=== PATIENT | male | born 1990 | race Caucasian/White ===

== ENCOUNTER 2022-03-07 17:39 | Inpatient (IN) | payer SELFPAY ==
[2022-03-07] VITALS (8 sets, daily range): BP systolic 95–143; BP diastolic 39–76; PULSE 80–97; RESP 16–18; TEMP 36.9; O2SAT 98–100; BMI 32.5
--- NOTE | 2022-03-07 18:21 | XRR_ITS ---
PROCEDURE INFORMATION: Exam: XR Chest Exam date and time: 03/07/2022 6:28 PM Age: 31 years old Clinical indication: Other: Lower extremity edema TECHNIQUE: Imaging protocol: Radiologic exam of the chest. Views: 1 view. COMPARISON: No relevant prior studies available. FINDINGS: Lungs: Unremarkable. No consolidation. Pleural spaces: Unremarkable. No pleural effusion. No pneumothorax. Heart/Mediastinum: Unremarkable. No cardiomegaly. Bones/joints: Unremarkable. XR/XR chest 1V portable [id number] IMPRESSION: No acute findings.
--- NOTE | 2022-03-07 18:22 | ECG_ITS ---
[facility] Test Date: 2022-03-07 Pat Name: David Fallon Department: Room: Gender: Male Bevel [employer]: : 1990 Requested By: Obi Dunaway Order Number: [id number] MD: Nadia Goodman M.D. Measurements Intervals [place] Rate: 93 P: 12 [place]: 161 QRS: 38 QRSD: 103 T: 1 QT: 396 QTc: 495 Interpretive Statements SINUS RHYTHM NONSPECIFIC T-WAVE ABNORMALITY No previous ECG available for comparison Electronically Signed On 03-08-2022 7:57:16 CDT by Nadia Goodman M.D. [id number]
--- NOTE | 2022-03-07 18:48 | USR_ITS ---
PROCEDURE INFORMATION: Exam: US Duplex Right Lower Extremity Veins, Limited Exam date and time: 03/07/2022 10:24 PM Age: 31 years old Clinical indication: Pain; Edema, localized; Lower extremity, right and lower extremity, bilateral; Leg, lower; Patient HX: Patient has chronic liver failure, chronic ble edema but no HX dvt; Additional info: Le swelling and pain TECHNIQUE: Imaging protocol: Real-time Duplex ultrasound of the Right Lower Extremity with 2-D sahu scale, color Doppler flow and spectral waveform analysis with image documentation. Limited exam was focused on the right lower extremity veins. COMPARISON: No relevant prior studies available. FINDINGS: Right deep veins: Unremarkable. The common femoral, femoral, proximal profunda femoral and popliteal veins are patent without thrombus. Normal Doppler waveforms. Normal compressibility and/or augmentation response. Right superficial veins: Unremarkable. Saphenofemoral junction is patent without thrombus. Soft tissues: Unremarkable. US/[place] [id number] IMPRESSION: No evidence of deep vein thrombosis.
[2022-03-07] MEDS: haloperidol inj 5 mg/mL INJ 1 mL 3 MG IVP (19:15)
[2022-03-07] MEDS: morphine 4 mg/mL SDV 1 mL IVP (19:15)
[2022-03-07] MEDS: FUROsemide 10 mg/mL SDV 10mL 80 MG IVP (19:15)
[2022-03-07] MEDS: ondansetron 2 mg/ML SDV 2 mL 4 MG IVP (19:18)
--- NOTE | 2022-03-07 20:17 | W.ED.EXTPRO ---
HPI - Extremity Problem General: Chief complaint: Extremity Injury, Lower Stated complaint: leg pain Time Seen by Provider: 03/07/22 18:15 Source: patient and family History of Present Illness: 31-year-old male with a history of autoimmune hepatitis he tells me. He has been on a float trip with some family. He has noticed increased bilateral right greater than left lower extremity swelling over the past 24 to 48 hours. He has significant pain to the right lower extremity. He is on a transplant list, and under hepatology care at the [facility]. He believes he has had some mild mental status changes as well. He has a high meld score at baseline. No definite fever. His leg feels warm. MD Complaint: extremity pain and extremity swelling Onset (ago): hour(s) Pain Consistency: constant Location: right and lower extremity Quality: stabbing and aching Associated symptoms: Deny chest pain or fever(s) Review of Systems Const: Denies: fever(s) Eyes: Denies: change in vision Card: Denies: chest pain Resp: Reports: dyspnea; Denies: productive cough or non-productive cough GI: Reports: nausea; Denies: abdominal pain or vomiting Psych: Reports: anxiety PFSH ED PFSH: Medical History (Updated 03/08/22 @ 01:50 by Lester Figueroa MD) Autoimmune hepatitis Surgical History (Updated 03/08/22 @ 01:51 by Lester Figueroa MD) History of liver biopsy Family History (Updated 03/08/22 @ 01:51 by Lester Figueroa MD) Grandfather Cancer Social History (Updated 03/08/22 @ 01:51 by Lester Figueroa MD) Smoking and tobacco status: never smoked Alcohol intake: never Substance/Drug Use: never Physical Exam Const: GENERAL APPEARANCE: cooperative, well kempt, in distress and ill appearing HENMT: COMMON NORMALS: normocephalic, atraumatic and Normal external nose present HEAD & SCALP: normocephalic and atraumatic FACE & SINUS: normal facial exam and face symmetric NOSE: Normal external nose present Eye: COMMON NORMALS: Equal, round and reactive pupils present and EOMs intact bilaterally SCLERA: scleral abnormal Laterality of scleral abnormality: positive bilateral scleral icterus PUPIL: Yes Equal, round and reactive pupils present Neck/C-Spine: GENERAL: Yes trachea midline Chest: CHEST: Yes Symmetrical chest wall rise Resp: COMMON NORMALS: clear to auscultation bilaterally EFFORT & INSPECTION: Yes tachypneic AUSCULTATION: clear to auscultation bilaterally Cardio: COMMON NORMALS: regular rate and regular rhythm RATE: regular rate RHYTHM: regular rhythm GI: COMMON NORMALS: Soft to palpation PALPATION: Yes Soft to palpation Extremity: NARRATIVE EXTREMITY EXAM: There is significant lower extremity tenderness on the right. There are petechia and a small amount of ecchymosis present, mainly to the dorsum of the foot. GENERAL: Yes edema (4+) Neuro: SHAKILA COMA SCALE: document GCS findings [place] coma scale eye opening: Spontaneous Shakila coma scale verbal response: Orientated Shakila coma scale motor response: Obey commands [place] coma scale total score: 15 Psych: COMMON NORMALS: cooperative APPEARANCE: Yes well kempt ATTITUDE: Yes Other attitude/behavior findings present (Psych) (Very anxious) ACTIVITY/MOTOR BEHAVIOR: Yes appropriate eye contact SPEECH: Yes Pressured speech present Skin: GENERAL SKIN EXAM: jaundice Course Vital Signs: Vital signs: Vital Signs Temperature 98.4 F 03/07/22 17:54 Pulse Rate 87 03/08/22 00:00 Respiratory Rate 14 03/08/22 00:00 Blood Pressure 112/56 03/08/22 00:00 Pulse Oximetry 98 03/08/22 00:00 Oxygen Delivery Me thod 03/07/22 18:34 MDM - Extremity (Nontraumatic) Medical Decision Making 31-year-old male with a history of end-stage liver disease. He presents with significant painful swelling to bilateral lower extremities, right much greater than left. DVT ultrasound is negative. White blood cell count is 13.3. Hemoglobin is 11. Sodium is 118. Potassium is 5 EKG is not remarkable. Chest x-ray is not remarkable. He has been given 80 mg of Lasix without much diuresis currently. Blood pressures have been marginal, currently 109/62. Saturations are good on room air. This patient gets his care at [facility]. I have spoken with them, regarding possible admission bed. They are at capacity currently. Their team recommends fluid restriction, and diuretics, and obviously to watch sodium closely. His baseline bilirubin there recently is 7.5. Spoke with hospitalist about the potential to admit here. He requests CT of the abdomen pelvis, which is performed. He will see the patient in the ER Lab Data : 03/07/22 20:07 03/07/22 20:07 Radiology Impressions Chest X-Ray 03/07/22 18:21 IMPRESSION: No acute findings. Venous Duplex 03/07/22 18:48 IMPRESSION: No evidence of deep vein thrombosis. Abdomen/Pelvis CT 03/08/22 00:42 IMPRESSION: 1. Cirrhosis 2. Small ascites 3. Splenomegaly 4. Shunt vascularity consistent with portal hypertension 5. Nonspecific thickening of the gallbladder wall 6. Nonspecific colitis involving portions of the ascending colon and splenic flexure. 7. Thickened small bowel loops suggesting nonspecific enteritis COMMENTS: Consistent with the [place]'s Incidental Findings Committee white paper (J Am Anam Radiol 2018): Any incidental renal lesion less than 1 cm or classified as too small to characterize, or any incidental cystic renal lesion characterized as simple-appearing, is likely benign. No follow-up imaging is recommended for these lesions per consensus recommendations based on imaging criteria. Laboratory Results WBC 13.3 10^3/uL (4.0-10.0) H 03/07/22 20:07 RBC 3.43 10^6/uL (4.1-5.3) L 03/07/22 20:07 Hgb 10.9 g/dL (11.7-16.6) L 03/07/22 20:07 Hct 32.2 % (42.0-52.0) L 03/07/22 20:07 MCV 93.9 fl (80-94) 03/07/22 20:07 MCH 31.8 pg (28.0-34.0) 03/07/22 20:07 MCHC 33.9 g/dL (30.0-36.0) 03/07/22 20:07 RDW 15.3 % (12.1-15.1) H 03/07/22 20:07 Plt Count 42 10^3/cmm (130-400) L 03/07/22 20:07 MPV 12.4 fL (7.4-10.4) H 03/07/22 20:07 Neut % (Auto) 84.6 % 03/07/22 20:07 Lymph % (Auto) 5.1 % 03/07/22 20:07 [place] % (Auto) 8.9 % 03/07/22 20:07 Eos % (Auto) 0.1 % 03/07/22 20:07 Baso % (Auto) 0.3 % 03/07/22 20:07 Neut # (Auto) 11.28 10^3/uL (1.8-7.7) H 03/07/22 20:07 Lymph # (Auto) 0.7 10^3/uL (0.8-4.8) L 03/07/22 20:07 [place] # (Auto) 1.2 10^3/uL (0.2-0.9) H 03/07/22 20:07 Eos # (Auto) 0.0 10^3/uL (0.0-0.8) 03/07/22 20:07 Baso # (Auto) 0.0 10^3/uL (0.0-0.1) 03/07/22 20:07 Nucleated RBC % (auto) 0 % 03/07/22 20:07 Nucleated RBCs # 0.0 /100WBC 03/07/22 20:07 PT 26.50 SECONDS (12.1-14.9) H 03/07/22 20:07 INR 2.40 (0.8-1.2) H 03/07/22 20:07 Sodium 118 mmol/L (136-145) L* 03/07/22 20:07 Potassium 5.1 mmol/L (3.5-5.1) 03/07/22 20:07 Chloride 86 mmol/L (98-107) L 03/07/22 20:07 Carbon Dioxide 21 mmol/L (22-29) L 03/07/22 20:07 Anion Gap 16.1 (5-19) 03/07/22 20:07 BUN 14 mg/dL (6-20) 03/07/22 20:07 Creatinine 0.8 mg/dL (0.7-1.2) 03/07/22 20:07 GFR Calculation 111.3 mL/min (90-130) 03/07/22 20:07 Glucose 146 mg/dL (65-115) H 03/07/22 20:07 Calculated Osmolality 249 mOsm/kg (285-295) L 03/07/22 20:07 Lactate 3.8 mmol/L (0.5-2.2) H 03/07/22 20:07 Calcium 8.2 mg/dL (8.5-10.5) L 03/07/22 20:07 Magnesium 1.3 mg/dL (1.7-2.3) L 03/07/22 20:07 Total Bilirubin 9.5 mg/dL (0.15-1.2) H* 03/07/22 20:07 AST 129 U/L (0-40) H 03/07/22 20:07 ALT 88 U/L (0-41) H 03/07/22 20:07 Alkaline Phosphatase 303 U/L (40-130) H 03/07/22 20:07 Ammonia 38 umol/L (16-60) 03/07/22 20:07 C-Reactive Protein 8.6 mg/L (0.0-4.9) H 03/07/22 20:07 Total Protein 6.0 g/dL (6.6-8.7) L 03/07/22 20:07 Albumin 2.2 g/dL (3.5-5.2) L 03/07/22 20:07 Globulin 3.8 g/dL (1.3-4.6) 03/07/22 20:07 Procalcitonin 1.24 ng/mL (0-0.5) H 03/07/22 20:07 Urine Color Brown (Yellow) 03/07/22 18:55 Urine Appearance Cloudy (CLEAR) 03/07/22 18:55 Urine pH 5 (5-7) 03/07/22 18:55 Ur Specific Kimber[place] 1.020 (1.005-1.030) 03/07/22 18:55 Urine Protein 1+ (Negative) H 03/07/22 18:55 Urine Glucose (UA) Trace (Normal) H 03/07/22 18:55 Urine Ketones 1+ (Negative) H 03/07/22 18:55 Urine Blood 3+ (Negative) H 03/07/22 18:55 Urine Nitrate Positive (Negative) H 03/07/22 18:55 Urine Bilirubin 2+ (Negative) H 03/07/22 18:55 Urine Urobilinogen 8 mg/dL (Negative) H 03/07/22 18:55 Ur Leukocyte Esterase 1+ (Negative) H 03/07/22 18:55 Urine RBC 5-10 /hpf (0-2) H 03/07/22 18:55 Urine WBC 0-4 /hpf (0-5) H 03/07/22 18:55 Ur Squamous Epith Cells 10-15 /hpf (0-5) H 03/07/22 18:55 Calcium Oxalate Crystal 0-4 /hpf H 03/07/22 18:55 Amorphous Sediment 1+ /hpf 03/07/22 18:55 Urine Bacteria 1+ /hpf (NONE) H 03/07/22 18:55 Urine Mucus Trace /hpf 03/07/22 18:55 Discharge Plan Discharge Patient Disposition: Admitted As Inpatient Clinical Impression: Autoimmune liver disease, Hypoalbuminemia, Acute hyponatremia, Acquired hyperbilirubinemia Condition: Stable Coding Level of Care Code ED Retinal Angiographer for Chg Fwd Exam Comprehensive
[2022-03-07 20:19] LABS: Basophils % 0.3 %; Eosinophils % 0.1 %; Hematocrit 32.2 % (42.0-52.0); Hemoglobin 10.9 g/dL (11.7-16.6); Lymphocytes # 0.7 10^3/uL (0.8-4.8); Lymphocytes % 5.1 %; Mean Corpuscular HGB Conc 33.9 g/dL (30.0-36.0); Mean Corpuscular Hemoglobin 31.8 pg (28.0-34.0); Mean Corpuscular Volume 93.9 fl (80-94); Mean Platelet Volume 12.4 fL (7.4-10.4); Monocytes # 1.2 10^3/uL (0.2-0.9); Monocytes % 8.9 %; Neutrophils # 11.28 10^3/uL (1.8-7.7); Neutrophils % 84.6 %; Nucleated Red Blood Cells % 0 %; Platelet Count 42 10^3/cmm (130-400); Red Blood Count 3.43 10^6/uL (4.1-5.3); Red Cell Distribution Width 15.3 % (12.1-15.1); White Blood Count 13.3 10^3/uL (4.0-10.0)
[2022-03-07 20:39] LABS: Lactate (Lactic Acid level) 3.8 mmol/L (0.5-2.2)
[2022-03-07 20:40] LABS: Ammonia 38 umol/L (16-60)
[2022-03-07 20:52] LABS: Alanine Aminotransferase 88 U/L (0-41); Albumin Level 2.2 g/dL (3.5-5.2); Alkaline Phosphatase 303 U/L (40-130); Blood Urea Nitrogen 14 mg/dL (6-20); C Reactive Protein 8.6 mg/L (0.0-4.9); Calcium 8.2 mg/dL (8.5-10.5); Carbon Dioxide 21 mmol/L (22-29); Chloride 86 mmol/L (98-107); Globulin 3.8 g/dL (1.3-4.6); Glomerular Filtration Rate 111.3 mL/min (90-130); Glucose 146 mg/dL (65-115); Magnesium 1.3 mg/dL (1.7-2.3); Osmolality Calculated 249 mOsm/kg (285-295)
[2022-03-07 20:58] LABS: Procalcitonin 1.24 ng/mL (0-0.5)
[2022-03-07 21:27] LABS: Slide Review Slide Review Perform
[2022-03-07 21:28] LABS: Protein Urine 1+ (Negative); Urine Appearance Cloudy (CLEAR); Urine Color Brown (Yellow); pH Urine 5 (5-7)
[2022-03-07 21:29] LABS: Add Urine Microscopic? YES; Bilirubin Urine 2+ (Negative); Blood Urine 3+ (Negative); Glucose Urine UA Trace (Normal); Ketones Urine 1+ (Negative); Leukocyte Esterase Urine 1+ (Negative); Nitrate Urine Positive (Negative); Urobilinogen Urine 8 mg/dL (Negative)
[2022-03-07 21:30] LABS: Amorphous Sediment Urine 1+ /hpf; Bacteria Urine 1+ /hpf; Mucus Urine TRACE /hpf; WBC Urine 0-4 /hpf (0-5)
[2022-03-07 21:31] LABS: Add Urine Culture? No; Calcium Oxalate Crystals Urine 0-4 /hpf
[2022-03-07 21:32] LABS: Anion Gap 16.1 (5-19); Aspartate Amino Transferase 129 U/L (0-40); Potassium 5.1 mmol/L (3.5-5.1); Sodium 118 mmol/L (136-145); Total Bilirubin 9.5 mg/dL (0.15-1.2)
[2022-03-08] VITALS (87 sets, daily range): BP systolic 83–117; BP diastolic 39–62; PULSE 81–112; RESP 10–25; TEMP 36.2–36.7; O2SAT 89–100; BMI 35.7
--- NOTE | 2022-03-08 00:42 | CTR_ITS ---
PROCEDURE INFORMATION: Exam: CT Abdomen And Pelvis With Contrast Exam date and time: 03/08/2022 1:00 AM Age: 31 years old Clinical indication: Abdominal pain; Additional info: Abd pain, leukocytosis HX end stage liver dz TECHNIQUE: Imaging protocol: Computed tomography of the abdomen and pelvis with contrast. Radiation optimization: All CT scans at this facility use at least one of these dose optimization techniques: automated exposure control; mA and/or kV adjustment per patient size (includes targeted exams where dose is matched to clinical indication); or iterative reconstruction. Contrast material: OMNI 350; Contrast volume: 80 ml; Contrast route: INTRAVENOUS (IV); COMPARISON: US PV Venous 03/07/2022 10:24 PM RADIATION DOSE METRICS: Total DLP (mGy-cm): 1001.23 FINDINGS: Lungs: There is some partial atelectasis at the lung bases. Pneumonia not excluded. Liver: Liver is very small with nodular contours consistent with advanced cirrhosis. Gallbladder and bile ducts: There is hydrops of the gallbladder moderate gallbladder wall thickening. Gallbladder wall thickening is a nonspecific finding. Correlation with the clinical findings is suggested. Pancreas: The pancreas is normal. Spleen: There is marked nonspecific splenomegaly. Spleen is 20 cm in height. The spleen demonstrates punctate calcifications, consistent with remote granulomatous organism exposure. Adrenal glands: The adrenal glands are normal. Kidneys and ureters: There is extensive vascularity in the hilus of the spleen and around the left kidney consistent with portal hypertension and splenorenal shunt vascularity. There are multiple bilateral renal collecting system calcifications. There is no evidence of hydronephrosis. There is no stone along the course of either ureter. There is a small benign-appearing cyst upper pole right kidney. Stomach and bowel: There is mucosal edema involving the ascending colon and also the splenic flexure of the colon representing some nonspecific colitis. The transverse colon and rectosigmoid are normal in appearance. Findings could represent also inflammatory bowel disease. There is no evidence of intestinal obstruction. There is some mild wall thickening of small bowel loops along the right side of the abdomen. This could be related to the portal hypertension or represent some nonspecific enteritis. Appendix: A normal appendix is identified. Intraperitoneal space: There is a moderate amount of free intraperitoneal fluid present. Vasculature: The aorta is normal. There is no evidence of an abdominal aortic aneurysm. Lymph nodes: There is mild periaortic adenopathy with lymph nodes measuring up to 12 x 17 mm Urinary bladder: Unremarkable as visualized. Reproductive: Unremarkable as visualized. Bones/joints: Unremarkable. No acute fracture. Soft tissues: There is left inguinal hernia containing only fat. CT/CT abdomen pelvis w con* [id number] IMPRESSION: 1. Cirrhosis 2. Small ascites 3. Splenomegaly 4. Shunt vascularity consistent with portal hypertension 5. Nonspecific thickening of the gallbladder wall 6. Nonspecific colitis involving portions of the ascending colon and splenic flexure. 7. Thickened small bowel loops suggesting nonspecific enteritis COMMENTS: Consistent with the [employer] [employer]'s Incidental Findings Committee white paper (J Am Anam Radiol 2018): Any incidental renal lesion less than 1 cm or classified as too small to characterize, or any incidental cystic renal lesion characterized as simple-appearing, is likely benign. No follow-up imaging is recommended for these lesions per consensus recommendations based on imaging criteria.
[2022-03-08] MEDS: iohexol 350 mg/mL 100 mL Btl 80 ML IV (01:01)
[2022-03-08] MEDS: magnesium sulfate premix 4 GM/100 ML PREMIX IV (01:26)
--- NOTE | 2022-03-08 01:31 | XRR_ITS ---
PROCEDURE INFORMATION: Exam: XR Right Foot Exam date and time: 03/08/2022 1:47 AM Age: 31 years old Clinical indication: Pain; Edema and swelling, leg or foot; No, it is generalized; Right; Additional info: Foot pain TECHNIQUE: Imaging protocol: Radiologic exam of the Right foot. Views: 1 or 2 views. COMPARISON: US PV Venous 03/07/2022 10:24 PM FINDINGS: Bones/joints: The distal metaphyses of the 2nd through 5th metatarsals appears hypodense. This is a nonspecific finding although an inflammatory arthritidy such as rheumatoid arthritis could have this appearance. Soft tissues: There is soft tissue swelling seen in the in the dorsal aspect of the right foot. XR/XR foot RT 2V [id number] IMPRESSION: 1. There are no acute osseous findings. Washed out appearing distal metaphysis of the 2nd through 5th metatarsals, a nonspecific finding. An inflammatory arthritidy could have this appearance. 2. Dorsal soft tissue swelling of the right foot.
--- NOTE | 2022-03-08 01:46 | P.HP_ITS ---
Providers/Chief Complaint Chief Complaint: leg pain History of Present Illness David Fallon is a 31 year old male with a past medical history of autoimmune hepatitis, diagnosed the [facility], has had a liver biopsy, he tells me that he does not have insurance, so they are working on putting him on the transplant list eventually when he gets insurance. He is a newly diagnosed, in July 2021. He denies drinking any alcohol, he has chronic lower extremity edema, he is on Lasix and spironolactone, he tells me that he always has lower extremity edema, and he deals with it, he tells me that he did go [place] on the river on [place], had some bumps and bruises minor scratches on his right lower extremity. He started to notice bilateral extremity swelling which is wo rsening, but then in the last 24 hours he started to endorse very severe right lower extremity pain, he tells me from the knee down he has severe right lower extremity pain. He also reports increased confusion, his baseline meld score is 21. He tells me that his right leg seems much more warm, and tender. However his left lower extremity does not really bother him except the swelling. He tells me that the pain and the swelling of the right lower extremity became such so severe he decided to come to the emergency room, and when he got into the car he tells that the pain became such severe that he could barely tolerate his right lower extremity being touched. He does tell me that the right lower extremity has become much more red erythematous, and tender. No fevers, no chills, no nausea, no vomiting. No abdominal pain. No dysuria. No back pain. No headache, blurry vision -Patient tells me that his serum sodiums are chronic in the low 120s -He tells me that his serum bilirubin are chronically in the 70s -He does tell me he feels more confused than normal, he does not know his baseline ammonia levels, but tells me his meld score is 21 Review of Systems Eyes: Denies: change in vision Card: Denies: chest pain Resp: Denies: dyspnea GI: Denies: abdominal pain : Denies: flank pain or difficulty urinating Skin/Breast: Reports: rash and erythema Medications/Allergies Allergies Allergy/AdvReac Type Severity Reaction Status Date / Time hydromorphone Allergy ADR-Itching Verified 03/07/22 19:13 sulfamoxole Allergy Unknown Verified 03/07/22 19:13 PFSH Acute PFSH: Medical History (Updated 03/08/22 @ 01:55 by Lester Figueroa MD) Autoimmune hepatitis Surgical History (Updated 03/08/22 @ 01:51 by Lester Figueroa MD) History of liver biopsy Family History (Updated 03/08/22 @ 01:51 by Lester Figueroa MD) Grandfather Cancer Social History (Updated 03/08/22 @ 01:51 by Lester Figueroa MD) Smoking and tobacco status: never smoked Alcohol intake: never Substance/Drug Use: never Vitals/I&O/Wt Last Vital Signs Temp 98.4 F 03/07/22 17:54 Pulse 87 03/08/22 00:00 Resp 14 03/08/22 00:00 BP 112/56 03/08/22 00:00 Pulse Ox 98 03/08/22 00:00 O2 Del Method 03/07/22 18:34 Weight last 48 hrs Weight 99.79 kg Physical Exam Const: COMMON NORMALS: no acute distress and patient oriented x3 HENMT: COMMON NORMALS: normocephalic HEAD & SCALP: normocephalic Eye: COMMON NORMALS: Equal, round and reactive pupils present and EOMs intact bilaterally Neck/C-Spine: COMMON NORMALS: no JVD Resp: COMMON NORMALS: normal respiratory effort, No retractions, No use of accessory muscles and clear to auscultation bilaterally AUSCULTATION: clear to auscultation bilaterally Cardio: COMMON NORMALS: no JVD, regular rate, regular rhythm, S1 normal heart sound present and S2 normal heart sound present RATE: regular rate RHYTHM: regular rhythm HEART SOUNDS: S1 normal heart sound present and S2 normal heart sound present GI: COMMON NORMALS: Normal to inspection, nondistended, normoactive bowel sounds present, Soft to palpation, non-tender, No hepatosplenomegaly present, no masses and no bruits PALPATION: Yes Soft to palpation and Yes No hepatosplenomegaly present Extremity: NARRATIVE EXTREMITY EXAM: Bilateral extremity edema, 2+ Right extremity, erythema, swelling, tenderness, extending from knee down, has exquisite point tenderness, on dorsal aspect of the foot, with dense area of erythema Neuro: COMMON NORMALS: patient oriented x3, CN's II-XII intact bilaterally, moves all extremities and no focal motor deficits Psych: COMMON NORMALS: mental status grossly normal Data : 03/07/22 20:07 03/07/22 20:07 Micro: Microbiology 03/07/22 20:07 Blood Culture - Preliminary Blood SPECIMEN COLLECTED 03/07/22 20:05 Blood Culture - Preliminary Blood SPECIMEN COLLECTED A&P Assessment and plan (1) Autoimmune liver disease: Status: Acute (2) Sepsis: Status: Acute (3) Acute liver failure: Status: Acute (4) Cellulitis: Status: Acute (5) UTI (urinary tract infection): Status: Acute (6) Hyponatremia: Status: Acute (7) Hyperbilirubinemia: Status: Acute (8) Transaminitis: Status: Acute (9) Hypoalbuminemia: Status: Acute (10) Acute hyponatremia: Status: Acute (11) Elevated INR: Status: Acute Plan Acute on chronic liver failure -INR 2.4, serum 118, creatinine 0.8, AST 129, ALT 88, T bili 9.5, serum sodium 38, albumin 2.2, total protein 6 -We will continue to monitor -Ideally patient should be at [facility], however there is an issue in terms of the bed availability, will have to reach out again with them in the morning Hypomagnesemia, will replace Sepsis -Elevated lactate, elevated white blood cell count, increased confusion, acute encephalopathy -Etiology likely UTI -However given his right lower extremity pain, and him floating on the river with bumps and bruises certainly cellulitis or waterborne illness could be a possibility -CT scan does show gallbladder wall thickening we will do a gallbladder ultrasound -Blood cultures -Urine cultures -Broad-spectrum antibiotic therapy vancomycin, Zosyn -Needs ICU admission -full code -scd for dvt prophylaxis Severe right lower extremity pain, will do x-ray, to evaluate for cellulitis, does have some erythema, scattered throughout the right lower extremity, particu lar on the plantar aspect of the foot, venous ultrasound negative for DVT Bilateral extremity edema, continue Lasix 40 IV twice daily, spironolactone Chronic thrombocytopenia, continue to monitor Attestations Medical Necessity Statement*: Patient requires hospitalization, inpatient, greater than 2 midnights, for acute on chronic liver failure, sepsis, cellulitis, UTI, hyponatremia Coding Level of Care Code Acute [employer]erg[employer] Roving Winder for [facility] Fwd Diagnoses Autoimmune liver disease K76.89 Sepsis A41.9 Acute liver failure K72.00 Cellulitis L03.90 UTI (urinary tract infection) N39.0 Hyponatremia E87.1 Hyperbilirubinemia E80.6 Transaminitis R74.01 Hypoalbuminemia E88.09 Acute hyponatremia E87.1 Elevated INR R79.1
--- NOTE | 2022-03-08 01:56 | USR_ITS ---
PROCEDURE INFORMATION: Exam: US Abdomen, Limited; Right Upper Quadrant Exam date and time: 03/08/2022 2:06 AM Age: 31 years old Clinical indication: Other: Elevated tbil = 9.5; Elevated ast = 129; Elev alt = 88; Elevated alkphos = 303; Low protein, low albumin; Patient HX: Patient was diagnosed July 2021 with liver failure; Additional info: Cholecystitis TECHNIQUE: Imaging protocol: Real time ultrasound of the abdomen with image documentation. Limited exam focused on the right upper quadrant. COMPARISON: CT abdomen pelvis w con* [id number] 03/08/2022 1:00 AM FINDINGS: Liver: There is a nodular contour of the liver compatible with cirrhosis. Gallbladder: The gallbladder wall measures up to 3.9 mm and there is intermediate echogenicity material present compatible with gallbladder sludge, findings that suggest cholecystitis. However, there is a negative sonographic Muhammad sign elicited. Biliary ducts: Normal. No stones. No dilation. Pancreas: Visualized pancreas is unremarkable. Right kidney: There is an anechoic cystic mass seen in the upper pole of the right kidney measuring 1.2 cm. Spleen: There is hepatofugal blood flow documented with color Doppler and duplex waveform sonography within the splenic vein. 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 Intraperitoneal space: Free fluid is seen within the abdomen. Other findings: Gastroesophageal varices are present. US/US gall bladder [id number] IMPRESSION: 1. Nodular contour of the liver compatible with cirrhosis. 2. There is absence of flow within the main portal vein. Hepatofugal blood flow is seen within the splenic vein. 3. There is gallbladder wall thickening and some intraluminal gallbladder sludge present, findings that could represent cholecystitis. However, a negative sonographic Muhammad sign is elicited. 4. Small volume of ascites 5. Gastroesophageal varices 6. Benign 1.2 cm right renal cyst. No further workup needed.
[2022-03-08 02:45] LABS: Estmated Average Glucose 88; Hemoglobin A1C 4.7 % (4.0-6.0)
[2022-03-08] MEDS: pantoprazole 40 mg SDV IVP (03:10)
[2022-03-08] MEDS: piperacillin-tazobactam 3.375 GM in sodium chloride 0.9% (plus) 50 ML IV ×2 (03:47→12:18)
[2022-03-08] MEDS: vancomycin 1,500 MG/300 ML PIGGYBACK 200 MG IV ×2 (04:34→13:51)
[2022-03-08 04:38] LABS: Erythrocyte Sedimentation Rate 11 mm/hr (0-10)
[2022-03-08 04:39] LABS: LAB Peripheral Smear Sent for Review
[2022-03-08 04:50] LABS: INR 2.64 (0.8-1.2)
[2022-03-08 05:23] LABS: Chol HDL Ratio 5.37 mg/dL (1.0-5.00); Cholesterol 102 mg/dL (0-200); HDL Cholesterol 19 mg/dL (60-100); LDL Cholesterol Calculated 73 mg/dL (50-129); LDL HDL Ratio 3.84 RATIO (0.00-3.22); NT Pro B Type Natriuretic Pept 371 pg/mL (0-125); Thyroid Stimulating Hormone 2.09 uIU/mL (0.27-4.20); Triglycerides 49 mg/dL (0-150); Uric Acid 3.7 mg/dL (3.4-7.0)
[2022-03-08 05:45] LABS: Sodium 119 mmol/L (136-145)
--- NOTE | 2022-03-08 08:04 | PC.PHAR ---
pt states he takes care of his own medications-pt states he had an albuterol inhaler states he no longer has or uses it ext med history shows last filled 12/04/21 30d/s-pt states he only takes the medications entered
[2022-03-08] MEDS: FUROsemide 10 mg/mL SDV 4mL 40 MG IVP (08:33)
[2022-03-08] MEDS: spironolactone 25 mg Tablet 100 MG PO (08:34)
[2022-03-08 10:23] LABS: Sodium 117 mmol/L (136-145)
[2022-03-08 14:08] LABS: Lactate (Lactic Acid level) 2.6 mmol/L (0.5-2.2)
[2022-03-08 14:17] LABS: Sodium 118 mmol/L (136-145)
--- NOTE | 2022-03-08 15:18 | PC.NURSE ---
Patient reported Left upper forearm IV as painful upon initiating Vancomycin. I'v was stopped within seconds. Patient reported pain with flushing. IV was discontinued and new IV started in Left Hand. Patient tolerated well. Reported that previous attempts in Right arm were usually not successful.
--- NOTE | 2022-03-08 17:33 | PC.NURSE ---
1730 Notified of bed number patient is to go to at [facility] and phone number to call report. Notified patient. Notified Delmar Fallon, patients dad, of patients transfer this evening, will call report in next 10 minutes. Dad ask if we can call back to notify when patient leaves [facility], I will, or the nurse caring for him at that time will do our best to notify again at time of transfer.
[2022-03-08 17:49] LABS: Sodium 120 mmol/L (136-145)
--- NOTE | 2022-03-08 17:55 | PC.NURSE ---
Report given to Shital Alan RN at . Transport notified for transfer at 1750. All documents signed and prepared for transport team and receiving Hospital.
--- NOTE | 2022-03-08 19:04 | PC.NURSE ---
Patient was discharged to Ambulance personnel. Mother of patient was notified of departure. Patient alert and oriented with stable vital signs. Albumin was hanging to be finished en route.
== END 2022-03-08 19:10 | disposition short-term general hospital (02) | DRG 871 ==
LOC: ER 03-08 01:18 → ICU 03-08 02:18
PROVIDERS: Admitting Provider Family Medicine; Emergency Provider Emergency Medicine; Visit Provider Student in an Organized Health Care Education/Training Program
DX: A41.9 Sepsis, unspecified organism (principal); K72.00 Acute and subacute hepatic failure without coma; L03.115 Cellulitis of right lower limb; E87.1 Hypo-osmolality and hyponatremia; K76.6 Portal hypertension; N39.0 Urinary tract infection, site not specified; K75.4 Autoimmune hepatitis; K72.10 Chronic hepatic failure without coma; E83.42 Hypomagnesemia; D69.6 Thrombocytopenia, unspecified
CPT/HCPCS: 36415; 71045; 73620; 74177; 76705; 80053; 80061; 80503; 81001; 82140; 83036; 83605; 83735; 83880; 84145; 84295; 84443; 84550; 85025; 85610; 85651; 86140; 87040; 87641; 93005; 93971; 94664; 96365; 96367; 96375; 99285; C9113; J1630; J1940; J2270; J2405; J2543; J3370; J3475; P9047; Q9967